=== PATIENT | female | born 1965 | race African-American/Black ===

== ENCOUNTER 2017-11-26 18:02 | Emergency (ER) | payer SELFPAY ==
[~2017-11-26 18:02] MED LIST: ACYC1CAP16 PO; CYCL-36 PO; IBUP800T23 PO; NORV5TAB PO; XANA0.5T PO
[2017-11-26] MEDS ORDERED: IOHEXOL 350 MG/ML 10 ML VIAL (for RAD DIAG) IVCONTRAST ONE (18:03)
[2017-11-26 19:16] VITALS: BP 170/106; PULSE 65; RESP 18; TEMP 95.5; O2SAT 98
[2017-11-26 20:45] VITALS: BP 188/96; PULSE 75; RESP 18; O2SAT 99
[2017-11-26] MEDS ORDERED: ACYC200C66 PO (20:51)
[2017-11-26] MEDS ORDERED: IRBE150T49 PO (20:51)
--- NOTE | 2017-11-26 21:05 | PD ---
HPI Chief Complaint: Abdominal Pain Time Seen by Provider: 20:40 Travel History International Travel<30 days: No Contact w/Intl Traveler<30days: No Traveled to known affect area: No History of Present Illness HPI The patient is a 52 year old female who presents to the [facility] emergency department with a history of 1 week ago while throwing out trash and twisting while throwing the trash having sudden onset of neck and pain up into her shoulders, that then began to radiate down into the left arm. She reports that the upper back pain initially radiated to the chest, however this resolved. She reports that she now has pain that is most prominent along bilateral sides of her posterior neck and upper back between her shoulder blades. She reports that she has numbness and tingling/burning sensation to the left arm that is most prominent in the fourth and fifth digit of her left hand. She denies having any weakness. She reports having a history of hypertension, however her blood pressure is usually well controlled on Avapro. She does arrive with a blood pressure 188/96. She is unsure whether this is related to pain. She denies having any headache. She does report having a prior history of neck and back pain. She reports having history of herniated disks in her neck and back, however she denies any known history of pinched nerves in her neck. She reports that she did try using a cervical collar briefly last week without improvement. She denies having any chest pain currently. She denies having any shortness of breath, diaphoresis, nausea or vomiting. She does report having intermittent problems with indigestion and heartburn. She reports taking Nexium or Prilosec as needed for this. Her primary care physician is Dr. Desai. On review of systems otherwise, the patient denies having any known recent fevers, neck stiffness, cough or congestion, abdominal pain, vomiting, diarrhea, urinary symptoms, or neurologic symptoms. LMP: Status post hysterectomy PFSH Past Medical History Narrative Medical The patient's past medical history is significant for hypertension, herniated disks in her neck and back. The patient has a history of herpes which she takes acyclovir as needed for with outbreaks. Hypertension: Yes ?: Not : 6 Para: 6 Past Surgical History Narrative Surgical The patient's past surgical history is significant for partial hysterectomy. Hysterectomy: Yes (partial) Social History Alcohol Use: No Tobacco Use: No Substance Use: No Allergies-Medications (Allergen,Severity, Reaction): Coded Allergies: moxifloxacin (Unverified Allergy, Severe, Shortness of Breath, 11/26/17) Reported Meds & Prescriptions Reported Meds & Active Scripts Active Reported Avapro (Irbesartan) 150 Mg Tab 150 Mg PO DAILY Acyclovir 200 Mg Cap 200 Mg PO 5 TIMES A DAY Review of Systems Except as stated in HPI: all other systems reviewed are Neg General / Constitutional: No: Fever Eyes: No: Visual changes HENT: Positive: Neck Pain, No: Headaches, Rhinorrhea, Congestion, Neck Stiffness Cardiovascular: Positive: Chest Pain or Discomfort, No: Diaphoresis, Dyspnea on exertion Respiratory: No: Cough, Shortness of Breath Gastrointestinal: No: Nausea, Vomiting, Diarrhea, Abdominal Pain Genitourinary: No: Dysuria Musculoskeletal: No: Pain Skin: No Rash Neurologic: Positive: Paresthesia, No: Weakness, Focal Abnormalities, Change in Mentation, Slurred Speech, Sensory Disturbance Psychiatric: No: Depression Endocrine: No: Polydipsia Hematologic/Lymphatic: No: Easy Bruising Physical Exam Narrative General: The patient is a well-developed well-nourished female in no acute distress. Head and Neck exam: Head is normocephalic atraumatic. Eyes: EOMI, pupils are equal round and reactive to light. Nose: Midline septum with pink mucous membranes Mouth: Dentition unremarkable. Moist mucus membranes. Posterior oropharynx is not erythematous. No tonsillar hypertrophy. Uvula midline. Airway patent. Neck: No spinous process tenderness to palpation. No step-off or crepitus. No erythema or ecchymosis. No palpable lymphadenopathy. No nuchal rigidity. No thyromegaly. The patient reports pain with range of motion of her neck. She reports having pain with palpation of the paraspinal musculature along the cervical paraspinal muscles bilaterally. The patient also has upper trapezius pain on palpation bilaterally. Cardiovascular: Regular rate and rhythm without murmurs, gallops, or rubs. No pulse deficit to the extremities on simultaneous auscultation and palpation of her radial artery. Lungs: Clear to auscultation bilaterally. No wheezes, rhonchi, or rales. Abdomen: Soft, without tenderness to palpation in all 4 quadrants of the abdomen. No guarding, rebound, or rigidity. Normal bowel sounds are audible. No tenderness on palpation of McBurney's point. Negative Cosby sign. Extremities: No clubbing, cyanosis, or edema. 2+ pulses in all 4 extremities. No calf tenderness on palpation. Back: No spinous process tenderness to palpation. No step-off or crepitus. No erythema or ecchymosis. No costovertebral angle tenderness to palpation. Neurologic Exam: Cranial nerves 2-12 were intact on exam. Strength is 5/5 in all 4 extremities. No sensory deficits noted. Skin Exam: No rash noted. Intact skin that is warm and dry. Data Data Last Documented VS Vital Signs Date Time Temp Pulse Resp B/P (MAP) Pulse Ox O2 Delivery O2 Flow Rate FiO2 11/27/17 00:46 67 18 175/99 (124) 99 11/26/17 20:45 Room Air 11/26/17 19:16 95.5 Orders Orders Electrocardiogram (11/26/17 19:20) Electrocardiogram (11/26/17 20:52) Complete Blood Count With Diff (11/26/17 20:52) Comprehensive Metabolic Panel (11/26/17 20:52) Creatine Kinase (Cpk) (11/26/17 20:52) Ckmb (Isoenzyme) Profile (11/26/17 20:52) Troponin I (11/26/17 20:52) B-Type Natriuretic Peptide (11/26/17 20:52) Prothrombin Time / Inr (Pt) (11/26/17 20:52) Act Partial Throm Time (Ptt) (11/26/17 20:52) Lipase (11/26/17 20:52) Urinalysis - C+S If Indicated (11/26/17 20:52) Magnesium (Mg) (11/26/17 20:52) Chest, Single Ap (11/26/17 20:52) Iv Access Insert/Monitor (11/26/17 20:52) Ecg Monitoring (11/26/17 20:52) Oximetry (11/26/17 20:52) Ct Cerv Spine W/O Contrast (11/26/17 20:52) Cta Neck W Iv Contrast W 3d (11/26/17 ) Ct Brain W/O Iv Contrast(Rout) (11/26/17 20:55) Ketorolac Inj (Toradol Inj) (11/26/17 21:15) Iohexol 350 Inj (Omnipaque 350 Inj) (11/26/17 18:03) Labs Laboratory Tests Test 11/26/17 21:00 11/26/17 21:05 Urine Color LIGHT-YELLOW Urine Turbidity CLEAR Urine pH 7.0 Urine Specific [place] 1.013 Urine Protein NEG mg/dL Urine Glucose (UA) NEG mg/dL Urine Ketones NEG mg/dL Urine Occult Blood NEG Urine Nitrite NEG Urine Bilirubin NEG Urine Urobilinogen LESS THAN 2.0 MG/DL Urine Leukocyte Esterase NEG Urine RBC LESS THAN 1 /hpf Urine WBC 2 /hpf Urine Squamous Epithelial Cells 1 /hpf Urine Amorphous Sediment RARE Urine Mucus FEW /lpf Microscopic Urinalysis Comment CULT NOT INDICATED White Blood Count 8.5 TH/MM3 Red Blood Count 5.31 MIL/MM3 Hemoglobin 12.6 GM/DL Hematocrit 39.4 % Mean Corpuscular Volume 74.3 FL Mean Corpuscular Hemoglobin 23.7 PG Mean Corpuscular Hemoglobin Concent 31.8 % Red Cell Distribution Width 15.3 % Platelet Count 229 TH/MM3 Mean Platelet Volume 8.1 FL Neutrophils (%) (Auto) 52.2 % Lymphocytes (%) (Auto) 38.3 % Monocytes (%) (Auto) 7.0 % Eosinophils (%) (Auto) 1.4 % Basophils (%) (Auto) 1.1 % Neutrophils # (Auto) 4.5 TH/MM3 Lymphocytes # (Auto) 3.3 TH/MM3 Monocytes # (Auto) 0.6 TH/MM3 Eosinophils # (Auto) 0.1 TH/MM3 Basophils # (Auto) 0.1 TH/MM3 CBC Comment DIFF FINAL Differential Comment Prothrombin Time 10.4 SEC Prothromb Time International Ratio 1.0 RATIO Activated Partial Thromboplast Time 25.7 SEC Blood Urea Nitrogen 10 MG/DL Creatinine 0.84 MG/DL Random Glucose 88 MG/DL Total Protein 7.1 GM/DL Albumin 3.5 GM/DL Calcium Level 9.2 MG/DL Magnesium Level 2.1 MG/DL Alkaline Phosphatase 119 U/L Aspartate Amino Transf (AST/SGOT) 12 U/L Alanine Aminotransferase (ALT/SGPT) 20 U/L Total Bilirubin 0.5 MG/DL Sodium Level 142 MEQ/L Potassium Level 3.9 MEQ/L Chloride Level 106 MEQ/L Carbon Dioxide Level 25.7 MEQ/L Anion Gap 10 MEQ/L Estimat Glomerular Filtration Rate 86 ML/MIN Total Creatine Kinase 85 U/L Troponin I LESS THAN 0.02 NG/ML B-Type Natriuretic Peptide 12 PG/ML Lipase 108 U/L MDM Medical Decision Making Medical Screen Exam Complete: Yes Emergency Medical Condition: Yes Medical Record Reviewed: Yes Differential Diagnosis Cervical artery dissection, versus cervical radiculopathy, versus herniated disc , versus arthritic changes of the cervical spine, versus acute coronary syndrome , versus ulnar nerve compression Narrative Course During the course of the patient's emergency department visit, the patient's history, examination, and differential diagnosis were reviewed with the patient. The patient was placed on a monitoring manager with oximetry and frequent blood pressure monitoring. The patient had IV access obtained and blood work sent for analysis. The patient was initially provided Toradol 15 mg IV for pain. The patient's laboratory studies were reviewed and remarkable for a white count of 8.5, hemoglobin 12.6, platelets 229 with a normal differential, CMP is remarkable for GFR of 86, AST 12, alk phos 119, cardiac enzymes within normal limits, BNP is 12, lipase 108, PT PTT within normal limits, urinalysis is unremarkable. Radiology studies were reviewed and remarkable for Last Impressions Head CT 11/26/172054 Signed Impressions: CONCLUSION: 1. No acute intracranial abnormalities. Chest X-Ray 11/26/172051 Signed Impressions: CONCLUSION: No active disease. Cervical Spine CT 11/26/172051 Signed Impressions: CONCLUSION: 1. No acute findings on cervical spine CT. Enlarged right lobe thyroid. Neck CTA 11/26/17 0000 Signed Impressions: CONCLUSION: 1. No evidence of dissection. 2. Unremarkable CTA of the carotids for patient's age. The patient symptoms are most consistent with a musculoskeletal strain. The patient will be discharged home with a prescription for Naprosyn and Flexeril. The patient is resting comfortably and feels better, is alert and in no distress. The patient's results and examination findings were discussed with the patient. The repeat examination is unremarkable and benign. The history, exam, diagnostic testing, and current condition do not suggest any significant pathology to warrant further testing, continued ED treatment, admission, or surgical evaluation at this point. The vital signs have been stable. The patient does not have uncontrollable pain, intractable vomiting, or other significant symptoms. The patient's condition is stable and appropriate for discharge. The patient will pursue further outpatient evaluation with a primary care physician or other designated or consulting physician as indicated in the discharge instructions. The patient is instructed to report back to the emergency department immediately for reexamination in the mean time if he/ she develops any new or worsening signs or symptoms. The patient expressed understanding and was agreeable with this plan. Diagnosis Primary Impression: Neck pain Additional Impressions: Back pain Qualified Codes: M54.6 - Pain in thoracic spine Paresthesias Referrals: Primary Care Physician 3 days Patient Instructions: Back Pain (ED), General Instructions, Neck Pain (ED), Paresthesia (ED) Med/Other Pt SpecificInfo: Prescription(s) given Scripts Naproxen DR (EC-Naprosyn) 500 Mg Tabdr 500 MG PO BID Y for PAIN GREATER THAN 5, #10 TAB 0 Refills Prov: Maria Luisa Brewer MD 11/27/17 Cyclobenzaprine (Flexeril) 5 Mg Tab 5 MG PO TID Y for SPASM, #15 TAB 0 Refills Prov: Maria Luisa Brewer MD 11/27/17 Disposition: 01 DISCHARGE HOME Condition: Stable Maria Luisa Brewer MD Nov 26, 2017 21:05
[2017-11-26] MEDS ORDERED: KETOROLAC TROMETHAMINE 30 MG/ML (IVP) VIAL IV PUSH ONE (21:15)
[2017-11-26 21:33] LABS: AUTOMATED NEUTROPHIL # 4.5 TH/MM3 (1.8-7.7); BASOPHIL # 0.1 TH/MM3 (0-0.2); BASOPHIL % 1.1 % (0.0-2.0); EOSINOPHIL # 0.1 TH/MM3 (0-0.4); EOSINOPHIL % 1.4 % (0.0-4.0); HEMATOCRIT 39.4 % (35.0-46.0); HEMOGLOBIN 12.6 GM/DL (11.6-15.3); LYMPH % 38.3 % (9.0-44.0); LYMPHOCYTE # 3.3 TH/MM3 (1.0-4.8); MEAN CELL VOLUME 74.3 FL (80.0-100.0); MEAN CORPUSCULAR HEMOGLOBIN 23.7 PG (27.0-34.0); MEAN CORPUSCULAR HGB CONC 31.8 % (32.0-36.0); MEAN PLATELET VOLUME 8.1 FL (7.0-11.0); MONOCYTE # 0.6 TH/MM3 (0-0.9); NEUT % 52.2 % (16.0-70.0); PLATELET COUNT 229 TH/MM3 (150-450); RED BLOOD COUNT 5.31 MIL/MM3 (4.00-5.30); RED CELL DISTRIBUTION WIDTH 15.3 % (11.6-17.2); WHITE BLOOD COUNT 8.5 TH/MM3 (4.0-11.0)
--- NOTE | 2017-11-26 21:35 | RADRPT ---
EXAM DATE: 11/26/2017 9:30 PM EDT AGE/SEX: 52 years / Female INDICATIONS: Chest pain CLINICAL DATA: This is the patient's initial encounter. Patient reports that signs and symptoms have been present for 1 day and indicates a pain score of 1/10. MEDICAL/SURGICAL HISTORY: Hypertension. None. COMPARISON: No prior [facility] exams available for comparison. FINDINGS: A single AP view of the chest demonstrates the lungs to be symmetrically aerated without evidence of mass, infiltrate or effusion. The cardiomediastinal contours are unremarkable. Osseous structures a re intact. CONCLUSION: No active disease. Electronically signed by: Hunter Christianson MD 11/26/2017 9:33 PM EDT
[2017-11-26 21:50] LABS: PROTHROMBIN TIME - PATIENT 10.4 SEC (9.8-11.6)
[2017-11-26 21:53] LABS: ALBUMIN 3.5 GM/DL (3.4-5.0); AST (GOT) 12 U/L (15-37); BICARBONATE 25.7 MEQ/L (21.0-32.0); BLOOD UREA NITROGEN 10 MG/DL (7-18); CALCIUM 9.2 MG/DL (8.5-10.1); CHLORIDE 106 MEQ/L (98-107); CREATININE 0.84 MG/DL (0.50-1.00); GLOMERULAR FILTRATION RATE 86 ML/MIN (>89); GLUCOSE,RANDOM 88 MG/DL (74-106); MAGNESIUM 2.1 MG/DL (1.5-2.5); SODIUM (NA) 142 MEQ/L (136-145)
[2017-11-26 21:55] LABS: ALT (GPT) 20 U/L (10-53)
[2017-11-26 21:59] LABS: ALKALINE PHOSPHATASE 119 U/L (45-117); TOTAL BILIRUBIN ADULT 0.5 MG/DL (0.2-1.0); TOTAL PROTEIN 7.1 GM/DL (6.4-8.2); TROPONIN I LESS THAN 0.02 NG/ML (0.02-0.05)
[2017-11-26 22:29] LABS: AMORPHOUS SEDIMENT, URINE RARE; BILIRUBIN, URINE NEG (NEG); BLOOD, URINE NEG (NEG); GLUCOSE,URINE NEG (NEG); KETONE, URINE NEG (NEG); MUCUS URINE FEW /lpf (OCC); NITRITE,URINE NEG (NEG); SQUAMOUS EPITHELIAL CELL URINE 1 /hpf (0-5); URINE COLOR LIGHT-YELLOW (YELLW/STRAW); URINE LEUKOCYTE ESTERASE NEG (NEG)
--- NOTE | 2017-11-26 22:54 | RADRPT ---
EXAM DATE: 11/26/2017 10:49 PM EDT AGE/SEX: 52 years / Female INDICATIONS: Left arm numbness with neck pain. CLINICAL DATA: This is the patient's initial encounter. Patient reports that signs and symptoms have been present for 1 day and indicates a pain score of 6/10. MEDICAL/SURGICAL HISTORY: Hypertension. . RADIATION DOSE: 19.64 CTDI (mGy) COMPARISON: No prior [facility] exams available for comparison. TECHNIQUE: Contiguous axial images were obtained using helical multirow detector technique. The vol umetric data was post-processed with multiplanar reconstruction in oblique axial, sagittal, and coron al planes. Using automated exposure control and adjustment of the mA and/or kV according to patient s ize, radiation dose was kept as low as reasonably achievable to obtain optimal diagnostic quality ellyn ges. FINDINGS: No acute fracture or spondylolisthesis. No prevertebral soft tissue swelling. No canal or significant foraminal stenosis identified on CT. Right lobe thyroid gland is enlarged relative to the left CONCLUSION: 1. No acute findings on cervical spine CT. Enlarged right lobe thyroid. Electronically signed by: Hunter Christianson MD 11/26/2017 10:52 PM EDT
--- NOTE | 2017-11-26 22:55 | RADRPT ---
EXAM DATE: 11/26/2017 10:47 PM EDT AGE/SEX: 52 years / Female INDICATIONS: Left arm numbness with neck pain. CLINICAL DATA: This is the patient's initial encounter. Patient reports that signs and symptoms have been present for 1 day and indicates a pain score of 5/10. MEDICAL/SURGICAL HISTORY: Hypertension. . RADIATION DOSE: 39.09 CTDI (mGy) COMPARISON: No prior [facility] exams available for comparison. TECHNIQUE: CT of the head without contrast. Using automated exposure control and adjustment of the mA and/or kV according to patient size, radiation dose was kept as low as reasonably achievable to ob tain optimal diagnostic quality images. FINDINGS: Cerebrum: The ventricles are normal for age. No evidence of midline shift, mass lesion, hemorrhage or acute infarction. No extraaxial fluid collections are seen. Posterior Fossa: The cerebellum and brainstem are intact. The 4th ventricle is midline. The cerebe llopontine angle is unremarkable. Extracranial: The visualized portion of the orbits is intact. Skull: The calvaria is intact. No evidence of skull fracture. CONCLUSION: 1. No acute intracranial abnormalities. Electronically signed by: Hunter Christianson MD 11/26/2017 10:54 PM EDT
[2017-11-27 00:46] VITALS: BP 175/99; PULSE 67; RESP 18; O2SAT 99
--- NOTE | 2017-11-27 01:17 | RADRPT ---
EXAM DATE: 11/27/2017 12:55 AM EDT AGE/SEX: 52 years / Female INDICATIONS: Left arm numbness and neck pain. Possible cervical dissection. CLINICAL DATA: This is the patient's initial encounter. Patient reports that signs and symptoms have been present for 1 day and indicates a pain score of 6/10. MEDICAL/SURGICAL HISTORY: Hypertension. . RADIATION DOSE: 28.30 CTDI (mGy) COMPARISON: No prior [place] exams available for comparison. TECHNIQUE: Volumetric scanning was performed using a multirow detector CT scanner during bolus infus ion of 75 ml Omnipaque 350 (iohexol) nonionic water-soluble contrast as a cumulative dose for multip le exams. The data was postprocessed with a variety of visualization algorithms including full-volu me maximum intensity projection, multiplanar sliding thin-slab reformation, curved-planar reformation , and surface-rendering techniques. Using automated exposure control and adjustment of the mA and/or kV according to patient size, radiation dose was kept as low as reasonably achievable to obtain opti mal diagnostic quality images. FINDINGS: Aortic Arch: There is a four-vessel origin of the great vessels from the aorta. No evidence of osti al narrowing Right Carotid: The common carotid artery is intact. The carotid bulb has a normal configuration wit hout ulceration or narrowing. The internal carotid artery lumen is smooth without stenosis. The ext ernal carotid artery is intact. No evidence of dissection. Left Carotid: The common carotid artery is intact. The carotid bulb has a normal configuration with out ulceration or narrowing. The internal carotid artery lumen is smooth without stenosis. The exte rnal carotid artery is intact. No evidence of dissection. Vertebrals: The vertebral arteries have a symmetric diameter. No stenotic lesions are seen. No evid ence of dissection. Incidental finding of a right thyroid goiter. Elevated flow velocities and ICA/CCA ratios have been found to correlate with increased degrees of ve ssel stenosis, calculated as percentage of diameter relative to a normal segment of distal ICA/CCA. CONCLUSION: 1. No evidence of dissection. 2. Unremarkable CTA of the carotids for patient's age. Electronically signed by: Rob Gonzalez MD 11/27/2017 1:15 AM EDT
[2017-11-27] MEDS ORDERED: NAPR-810 PO (01:38)
[2017-11-27] MEDS ORDERED: CYCL5TAB PO (01:38)
--- NOTE | 2017-11-27 16:15 | EKG ---
Date Performed: 11/26/2017 Time Performed: 22:41:55 PTAGE: 52 years EKG: Sinus rhythm NORMAL ECG Since the PREVIOUS TRACING , no significant change noted PREVIOUS TRACIN11/26/2017 19.22 DOCTOR: Niharika Paz Interpretating Date/Time 11/27/2017 16:14:51
--- NOTE | 2017-11-27 16:15 | EKG ---
Date Performed: 11/26/2017 Time Performed: 19:22:39 PTAGE: 52 years EKG: Sinus rhythm POSSIBLE LEFT ATRIAL ENLARGEMENT BORDERLINE ECG Since the PREVIOUS TRACING , no significant change noted PREVIOUS TRACING; @16.22 DOCTOR: Niharika Paz Interpretating Date/Time 11/27/2017 16:14:42
== END 2017-11-27 02:43 | disposition home or self-care (01) ==
LOC: NEPC 18:02
DX: M54.2 Cervicalgia (principal); M54.6 Pain in thoracic spine; R20.2 Paresthesia of skin; R07.9 Chest pain, unspecified; I10 Essential (primary) hypertension; Z79.899 Other long term (current) drug therapy
CPT/HCPCS: 70450; 70498; 71045; 72125; 80053; 81001; 82550; 83690; 83735; 83880; 84484; 85025; 85610; 85730; 93005; 96374; 99285; J1885; Q9967